=== PATIENT | female | born 1990 | race Caucasian/White ===

== ENCOUNTER 2016-11-28 18:01 | Emergency (ER) | payer SELFPAY ==
[~2016-11-28] VITALS: Wt 54.5 kg
[2016-11-28] MEDS ORDERED: NAPR-260 PO (18:15)
[2016-11-28] MEDS ORDERED: CYCL-319 PO (18:15)
[2016-11-28] MEDS ORDERED: HYDR-906 PO (18:21)
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
== END 2016-11-28 18:16 | disposition home or self-care (01) ==
LOC: E/R 18:01
DX: S09.90XA Unspecified injury of head, initial encounter (principal); V49.49XA Driver injured in collision with other motor vehicles in traffic accident, initial encounter
CPT/HCPCS: 99283